=== PATIENT | female | born 1930 | race Caucasian/White ===

== ENCOUNTER 2016-06-05 19:37 | Emergency (ER) | payer MEDICARE, OTHER, MEDICAID ==
[2016-06-05] MEDS ORDERED: SODIUM CHLORIDE 0.9% (FLUSH) 10 ML SYG IV PRN (19:48)
[2016-06-05] MEDS ORDERED: ONDANSETRON INJ 4 MG/2 ML VIAL IV ONE (19:48)
[2016-06-05] MEDS ORDERED: MORPHINE SULFATE INJ 10 MG/ML VIAL IV ONE (19:49)
--- NOTE | 2016-06-05 19:54 | ED.PDOC ---
History of Present Illness - General Chief Complaint: Chest Pain/DE Stated Complaint: Pain on her left side Time Seen by Provider: 06/05/16 19:47 Source: patient, RN notes reviewed, Vital Signs reviewed, EMS Exam Limitations: no limitations - History of Present Illness Initial Comments: Patient complaining of left sided pain in her chest down to her hip. Denies any other symptoms. She was given SLNTG X2 at custodial without improvement so EMS was called. EMS gave SLNTG X 1 which dropped her BP to 100 so no more was given. She was also given ASA 324mg po. Patient still did not have any change in her pain. Timing/Duration: 1 hour Severity: severe Location: shoulder, abdomen, other - Left side of chest Activities at Onset: none Prior Chest Pain/Cardiac Workup: stress test - Reports she had a stress test yesterday Improving Factors: nothing Worsening Factors: nothing Nitro Today/Relief: 0.4 mg x 3, provided by EMS, provided at home, no relief Aspirin Treatment Today: 81 mg x 4, provided by EMS Associated Symptoms: chest pain Allergies/Adverse Reactions: Allergies Penicillins Allergy (Verified 12/22/15 10:23) Home Medications: Ambulatory Orders Aspirin [Aspirin EC] 325 mg PO BEDTIME 11/21/13 Clopidogrel Bisulfate [Plavix] 75 mg PO DAILY 11/21/13 DULoxetine HCL [Cymbalta] 30 mg PO ACBK 11/21/13 Dexlansoprazole [Dexilant] 60 mg PO ACBK 11/21/13 Donepezil Hydrochloride [Donepezil HCl] 10 mg PO BEDTIME 11/21/13 Galantamine [Razadyne] 4 mg PO BID 11/21/13 Loratadine [Claritin] 10 mg PO DAILY 11/21/13 Memantine [Namenda] 10 mg PO BID 11/21/13 Potassium Chloride [K-Tab] 20 meq PO DAILY 11/21/13 Pramipexole Dihydrochloride [Pramipexole Dihydrochlori] 1 mg PO BID 11/21/13 Diazepam 2 mg PO BEDTIME 10/15/14 Diazepam 1 mg PO DAILY 01/28/15 Ascorbic Acid [Vitamin C] 500 mg PO BEDTIME 11/29/15 Bisacodyl Suppository 10Mg [Dulcolax Suppository 10mg] 10 mg WI PRN PRN Calcium Carbonate-Cholecalcife [Calcium 600+D3 600-400 mg-Unit] 1 tab PO BEDTIME 11/29/15 Cyanocobalamin [Vitamin B12] 500 mcg PO BEDTIME 11/29/15 Magnesium Oxide 400 mg PO BID 11/29/15 Polyethylene Glycol 3350 [Miralax] 17 gm PO DAILY 11/29/15 Pravastatin Sodium 40 mg PO DAILY 11/29/15 Sucralfate Tab [Carafate Tab] 1 gm PO TID #90 tab 11/30/15 Clonidine HCl 0.1 mg PO DAILY PRN 12/22/15 Metoprolol Succinate [Toprol Xl] 50 mg PO QAM 12/22/15 Nitroglycerin 0.4 mg Tab [Nitrostat] 1 ea SL PRN PRN 12/22/15 Ondansetron HCl [Zofran] 4 mg PO Q6H PRN 12/22/15 Tylenol #3 1 each PO Q4H PRN 12/22/15 Ondansetron Tab [Zofran Tab] 4 mg PO Q4HR PRN #15 tab 12/23/15 Review of Systems - Review of Systems Constitutional: States: no symptoms reported. Denies: chills, diaphoresis, fever, malaise, weakness Respiratory: Denies: cough, orthopnea, short of breath, stridor, wheezing Cardiology: States: see HPI, chest pain Gastrointestinal/Abdominal: States: abdominal pain. Denies: constipation, diarrhea, nausea, vomiting Genitourinary: States: see HPI. Denies: dysuria Musculoskeletal: States: no symptoms reported Skin: States: no symptoms reported Neurological: States: no symptoms reported Endocrine: States: no symptoms reported Hematologic/Lymphatic: States: no symptoms reported Past Medical History (General) - Patient Medical History Hx Seizures: No Hx Stroke: Yes - TIA, cerebral infarction Hx Dementia: Yes Hx Asthma: No Hx of COPD: No Hx Cardiac Disorders: Yes Hx Congestive Heart Failure: No Hx Pacemaker: No Hx Hypertension: Yes Hx Thyroid Disease: No Hx Diabetes: No Hx Gastroesophageal Reflux: Yes Hx Renal Disease: No Hx Cancer: No Hx of HIV: No Hx Hepatitis C: No Hx MRSA: No - Vaccination History Hx Influenza Vaccination: Yes - 2013 Hx Pneumococcal Vaccination: Yes - 2012 - Social History Hx Tobacco Use: No Hx Chewing Tobacco Use: No Hx Alcohol Use: No Hx Substance Use: No Hx Substance Use Treatment: No Hx Depression: Yes Hx Physical Abuse: No Hx Emotional Abuse: No Hx Suspected Abuse: No - Female History Patient : No Family Medical History - Family History Mother Family History: Unknown Name: Susan Torre Living Status: Age at (years of age): 97 Cause of : heart attack Hx Family Asthma: Yes Hx Family Congestive Heart Failure: Yes Hx Family Hypertension: Yes Hx Family Stroke: No Hx Cardiac Disease: Yes Hx Family Diabetes: No Hx Family Cancer: Yes Hx Family;Other: of an infection Father Family History: Unknown Name: Tommie Living Status: Age at (years of age): 86 Cause of : heart attach Hx Family Asthma: No Hx Family Congestive Heart Failure: Yes Hx Family Hypertension: Yes Hx Family Stroke: Yes Hx Cardiac Disease: Yes Hx Family Diabetes: No Hx Family Cancer: No Hx Family;Other: of an infection Progress - Progress Progress: 06/05/16 21:33 Nurse spoke with daughter. Reports Sherif Brantley is not new, she has had this before. She did have a stress test on Monday. Typically when she has symptoms like this it is gastrointestinal. 06/05/16 21:34 Pain was relieved after the morphine was given. 06/05/16 22:16 Patient continues to be pain free. Abd X-ray shows no acute findings with a nonspecific bowel gas pattern per Radiologist. - EKG/XRAY/CT EKG: Atrial, Fibrillation, Changed from - 12/22/15 XRAY: chest - No acute changes per radiology Departure - Departure Clinical Impression: Abdominal pain, Atrial fibrillation Time of Disposition: 22:17 Disposition: Discharge to Asst Living Condition: Good Departure Forms: ED Discharge - Pt. Copy, Patient Portal Self Enrollment Instructions: DI for Abdominal Pain-Adult Diet: resume usual diet Activity: walking as tolerated Referrals: Lito Lopez III, MD [Primary Care Provider] - 1-2 Days Home Medications: Ambulatory Orders Aspirin [Aspirin EC] 325 mg PO BEDTIME 11/21/13 Clopidogrel Bisulfate [Plavix] 75 mg PO DAILY 11/21/13 DULoxetine HCL [Cymbalta] 30 mg PO ACBK 11/21/13 Dexlansoprazole [Dexilant] 60 mg PO ACBK 11/21/13 Donepezil Hydrochloride [Donepezil HCl] 10 mg PO BEDTIME 11/21/13 Galantamine [Razadyne] 4 mg PO BID 11/21/13 Loratadine [Claritin] 10 mg PO DAILY 11/21/13 Memantine [Namenda] 10 mg PO BID 11/21/13 Potassium Chloride [K-Tab] 20 meq PO DAILY 11/21/13 Pramipexole Dihydrochloride [Pramipexole Dihydrochlori] 1 mg PO BID 11/21/13 Diazepam 2 mg PO BEDTIME 10/15/14 Diazepam 1 mg PO DAILY 01/28/15 Ascorbic Acid [Vitamin C] 500 mg PO BEDTIME 11/29/15 Bisacodyl Suppository 10Mg [Dulcolax Suppository 10mg] 10 mg WI PRN PRN Calcium Carbonate-Cholecalcife [Calcium 600+D3 600-400 mg-Unit] 1 tab PO BEDTIME 11/29/15 Cyanocobalamin [Vitamin B12] 500 mcg PO BEDTIME 11/29/15 Magnesium Oxide 400 mg PO BID 11/29/15 Polyethylene Glycol 3350 [Miralax] 17 gm PO DAILY 11/29/15 Pravastatin Sodium 40 mg PO DAILY 11/29/15 Sucralfate Tab [Carafate Tab] 1 gm PO TID #90 tab 11/30/15 Clonidine HCl 0.1 mg PO DAILY PRN 12/22/15 Metoprolol Succinate [Toprol Xl] 50 mg PO QAM 12/22/15 Nitroglycerin 0.4 mg Tab [Nitrostat] 1 ea SL PRN PRN 12/22/15 Ondansetron HCl [Zofran] 4 mg PO Q6H PRN 12/22/15 Tylenol #3 1 each PO Q4H PRN 12/22/15 Ondansetron Tab [Zofran Tab] 4 mg PO Q4HR PRN #15 tab 12/23/15
--- NOTE | 2016-06-05 20:04 | RAD ---
EXAM DESCRIPTION: XR CHEST 1 VIEW CLINICAL HISTORY: 86 y/o [place] pain COMPARISON: 12/22/2015. FINDINGS: The cardiomediastinal silhouette appears unremarkable. Atherosclerotic calcification and tortuosity in the thoracic aorta. No consolidating infiltrates or pleural effusions. No pneumothorax. No significant changes are visualized compared to the prior study. IMPRESSION: No acute abnormality is identified. Electronically signed by: Rene Mack MD 06/05/2016 20:02
[2016-06-05 20:34] VITALS: TEMP 98
--- NOTE | 2016-06-05 22:06 | RAD ---
EXAM DESCRIPTION: XR ABDOMEN 2 VIEWS SUPINE ERECT CLINICAL HISTORY: 86 y/o [place] sided abd pain COMPARISON: None. TECHNIQUE: Two views of the abdomen. FINDINGS: Tortuosity in the thoracic aorta. The lungs appear hyperexpanded. Small amount of atelectasis/ scarring at the left lung base. No free air is visualized. Mild distention within some loops of the colon. No definite bowel obstruction. Surgical clips visualized in the right upper abdomen. No significant abnormal calcific densities are identified. Curvature in the lumbar spine convex right with degenerative changes. IMPRESSION: No acute plain film abnormality is identified. Nonspecific bowel gas pattern. Electronically signed by: Rene Mack MD 06/05/2016 22:04
[2016-06-05 22:27] VITALS: O2SAT 97
[2016-06-05 22:29] VITALS: BP 105/76
== END 2016-06-05 23:33 ==
LOC: ER 19:37
DX: I48.91 Unspecified atrial fibrillation (principal); R10.9 Unspecified abdominal pain; Z86.73 Personal history of transient ischemic attack (TIA), and cerebral infarction without residual deficits; F03.90 Unspecified dementia, unspecified severity, without behavioral disturbance, psychotic disturbance, mood disturbance, and anxiety; I10 Essential (primary) hypertension; K21.9 Gastro-esophageal reflux disease without esophagitis; F32.9 Major depressive disorder, single episode, unspecified; Z79.82 Long term (current) use of aspirin; Z79.02 Long term (current) use of antithrombotics/antiplatelets; Z79.899 Other long term (current) drug therapy; Z88.0 Allergy status to penicillin; Z82.49 Family history of ischemic heart disease and other diseases of the circulatory system
CPT/HCPCS: 71010; 74010; 80048; 82550; 82553; 83880; 84484; 85025; 85379; 85610; 85730; 93005; J2270; J2405

== ENCOUNTER 2016-08-23 22:51 | Emergency (ER) | payer MEDICARE, OTHER ==
[2016-08-23] MEDS ORDERED: SODIUM CHLORIDE 0.9% 500ML 500 ML IVS ONE (23:17)
--- NOTE | 2016-08-23 23:19 | CT ---
PROCEDURE: Head HISTORY: confusion Indication: Same as above Comparison: 01/20/2015 Technique: CT of the head was done without intravenous contrast was done in the orthogonal planes. This exam was performed according to our departmental dose-optimization program, which includes automated exposure control, adjustment of the mA and/or KV according to the patient's size and/or use of iterative reconstruction technique. FINDINGS: There is no intracranial hemorrhage, midline shift mass effect or acute focal infarct. There is prominence of the sylvian fissures and the cortical sulci reflecting age related volume loss. There is periventricular and deep white matter low attenuation, most likely related to small vessel white matter ischemic disease. Intracranial vascular calcifications are seen. If clinical concern exists regarding an acute ischemic/vascular pathology being responsible for patient's symptomatology, an MRI of the brain is more sensitive than the current study, in ruling out such a possibility. There is good medina/white matter differentiation. The ventricular system is normal. The mastoid air cells are unremarkable . The paranasal sinuses show underlying changes of chronic sinusitis . There is no visualization of acute fractures involving the calvarium or the skull base. IMPRESSION: There is no acute intracranial abnormality. Age related and chronic involutional changes are seen. Electronically signed by: Rogelio Villalpando MD 08/23/2016 11:19 PM CDT
--- NOTE | 2016-08-23 23:20 | ED.PDOC ---
History of Present Illness - General Chief Complaint: Neuro Symptoms/Deficits Stated Complaint: possible stroke Time Seen by Provider: 08/23/16 23:10 Source: family Additional Information: PT WAS NOTED BY NH TO BE ACUTELY CONFUSED. NO FOCAL DEFICITS WERE REPORTED BUT PT WAS SENT FOR EVALUATION FOR POSSIBLE STROKE. DAUGHTER HERE. ONSET 9PM. DAUGHTER STATES SHE HAS HAD TIA IN THE PAST BUT THAT HAS BEEN ALWAYS ASSOCIATED WITH FACIAL DROOP. ALSO PT HAS BEEN LIKE THIS BEFORE AND IT FREQUENTLY IS A UTI. - History of Present Illness Timing/Duration: unsure Severity: mild Improving Factors: nothing Worsening Factors: nothing Associated Symptoms: other - NOTHING Allergies/Adverse Reactions: Allergies Penicillins Allergy (Verified 08/23/16 23:21) Home Medications: Ambulatory Orders Aspirin [Aspirin EC] 325 mg PO BEDTIME 11/21/13 Clopidogrel Bisulfate [Plavix] 75 mg PO DAILY 11/21/13 DULoxetine HCL [Cymbalta] 20 mg PO ACBK 11/21/13 Dexlansoprazole [Dexilant] 60 mg PO ACBK 11/21/13 Donepezil Hydrochloride [Donepezil HCl] 10 mg PO BEDTIME 11/21/13 Galantamine [Razadyne] 4 mg PO BID 11/21/13 Loratadine [Claritin] 10 mg PO DAILY 11/21/13 Memantine [Namenda] 10 mg PO BID 11/21/13 Potassium Chloride [K-Tab] 20 meq PO DAILY 11/21/13 Pramipexole Dihydrochloride [Pramipexole Dihydrochlori] 1 mg PO BID 11/21/13 Diazepam 2 mg PO BEDTIME 10/15/14 Diazepam 1 mg PO DAILY 01/28/15 Ascorbic Acid [Vitamin C] 500 mg PO BEDTIME 11/29/15 Bisacodyl Suppository 10Mg [Dulcolax Suppository 10mg] 10 mg AR PRN PRN Calcium Carbonate-Cholecalcife [Calcium 600+D3 600-400 mg-Unit] 1 tab PO BEDTIME 11/29/15 Cyanocobalamin [Vitamin B12] 500 mcg PO BEDTIME 11/29/15 Magnesium Oxide 400 mg PO BID 11/29/15 Polyethylene Glycol 3350 [Miralax] 17 gm PO DAILY 11/29/15 Pravastatin Sodium 40 mg PO DAILY 11/29/15 Sucralfate Tab [Carafate Tab] 1 gm PO TID #90 tab 11/30/15 Clonidine HCl 0.1 mg PO DAILY PRN 12/22/15 Metoprolol Succinate [Toprol Xl] 100 mg PO QAM 12/22/15 Nitroglycerin 0.4 mg Tab [Nitrostat] 1 ea SL PRN PRN 12/22/15 Ondansetron HCl [Zofran] 4 mg PO Q6H PRN 12/22/15 Tylenol #3 1 each PO Q4H PRN 12/22/15 Ondansetron Tab [Zofran Tab] 4 mg PO Q4HR PRN #15 tab 12/23/15 Dicyclomine HCl 10 mg PO PRN 08/23/16 Escitalopram Oxalate [Lexapro] 5 mg PO DAILY 08/23/16 Review of Systems - Review of Systems Unable to Obtain Due To: dementia - FAMILY REPORTS PT HAS BEEN IN HER USUAL STATE OF HEALTH Past Medical History (General) - Patient Medical History Hx Seizures: No Hx Stroke: Yes - TIA, cerebral infarction Hx Dementia: Yes Hx Asthma: No Hx of COPD: No Hx Cardiac Disorders: Yes Hx Congestive Heart Failure: No Hx Pacemaker: No Hx Hypertension: Yes Hx Thyroid Disease: No Hx Diabetes: No Hx Gastroesophageal Reflux: Yes Hx Renal Disease: No Hx Cancer: No Hx of HIV: No Hx Hepatitis C: No Hx MRSA: No - Vaccination History Hx Influenza Vaccination: Yes - 2013 Hx Pneumococcal Vaccination: Yes - 2012 - Social History Hx Tobacco Use: No Hx Chewing Tobacco Use: No Hx Alcohol Use: No Hx Substance Use: No Hx Substance Use Treatment: No Hx Depression: Yes Hx Physical Abuse: No Hx Emotional Abuse: No Hx Suspected Abuse: No - Female History Patient : No Family Medical History - Family History Mother Family History: Unknown Name: Susan Torre Living Status: Age at (years of age): 97 Cause of : heart attack Hx Family Asthma: Yes Hx Family Congestive Heart Failure: Yes Hx Family Hypertension: Yes Hx Family Stroke: No Hx Cardiac Disease: Yes Hx Family Diabetes: No Hx Family Cancer: Yes Hx Family;Other: of an infection Father Family History: Unknown Name: Tommie Living Status: Age at (years of age): 86 Cause of : heart attach Hx Family Asthma: No Hx Family Congestive Heart Failure: Yes Hx Family Hypertension: Yes Hx Family Stroke: Yes Hx Cardiac Disease: Yes Hx Family Diabetes: No Hx Family Cancer: No Hx Family;Other: of an infection Physical Exam - Physical Exam General Appearance: Alert, Frail, No apparent distress Eye Exam: bilateral normal Ears, Nose, Throat: hearing grossly normal Neck: non-tender, full range of motion, supple, normal inspection Respiratory: lungs clear, normal breath sounds Cardiovascular/Chest: regular rate, rhythm, no edema, other - 1/6 MILD AYO Gastrointestinal/Abdominal: normal bowel sounds, non tender, soft, no organomegaly Back Exam: normal inspection Extremity: normal range of motion, normal inspection Neurologic: no motor/sensory deficits, alert, other - PT WITH NON FOCAL EXAM OTHER THAN CONFUSION Skin Exam: normal color, warm/dry Lymphatic: no adenopathy Progress - Progress Progress: 08/24/16 00:51 VSS, SLEEPING, NAD, Departure - Departure Clinical Impression: Delirium due to known physiological condition Dementia Qualifiers: Dementia type: unspecified type Time of Disposition: 00:51 Disposition: Discharge to SNF Condition: Fair Departure Forms: ED Discharge - Pt. Copy, Patient Portal Self Enrollment Home Medications: Ambulatory Orders Aspirin [Aspirin EC] 325 mg PO BEDTIME 11/21/13 Clopidogrel Bisulfate [Plavix] 75 mg PO DAILY 11/21/13 DULoxetine HCL [Cymbalta] 20 mg PO ACBK 11/21/13 Dexlansoprazole [Dexilant] 60 mg PO ACBK 11/21/13 Donepezil Hydrochloride [Donepezil HCl] 10 mg PO BEDTIME 11/21/13 Galantamine [Razadyne] 4 mg PO BID 11/21/13 Loratadine [Claritin] 10 mg PO DAILY 11/21/13 Memantine [Namenda] 10 mg PO BID 11/21/13 Potassium Chloride [K-Tab] 20 meq PO DAILY 11/21/13 Pramipexole Dihydrochloride [Pramipexole Dihydrochlori] 1 mg PO BID 11/21/13 Diazepam 2 mg PO BEDTIME 10/15/14 Diazepam 1 mg PO DAILY 01/28/15 Ascorbic Acid [Vitamin C] 500 mg PO BEDTIME 11/29/15 Bisacodyl Suppository 10Mg [Dulcolax Suppository 10mg] 10 mg AR PRN PRN Calcium Carbonate-Cholecalcife [Calcium 600+D3 600-400 mg-Unit] 1 tab PO BEDTIME 11/29/15 Cyanocobalamin [Vitamin B12] 500 mcg PO BEDTIME 11/29/15 Magnesium Oxide 400 mg PO BID 11/29/15 Polyethylene Glycol 3350 [Miralax] 17 gm PO DAILY 11/29/15 Pravastatin Sodium 40 mg PO DAILY 11/29/15 Sucralfate Tab [Carafate Tab] 1 gm PO TID #90 tab 11/30/15 Clonidine HCl 0.1 mg PO DAILY PRN 12/22/15 Metoprolol Succinate [Toprol Xl] 100 mg PO QAM 12/22/15 Nitroglycerin 0.4 mg Tab [Nitrostat] 1 ea SL PRN PRN 12/22/15 Ondansetron HCl [Zofran] 4 mg PO Q6H PRN 12/22/15 Tylenol #3 1 each PO Q4H PRN 12/22/15 Ondansetron Tab [Zofran Tab] 4 mg PO Q4HR PRN #15 tab 12/23/15 Dicyclomine HCl 10 mg PO PRN 08/23/16 Escitalopram Oxalate [Lexapro] 5 mg PO DAILY 08/23/16
--- NOTE | 2016-08-23 23:42 | RAD ---
PROCEDURE: XR CHEST 1 VIEW HISTORY: AMS COMPARISON: 06/05/2016 TECHNIQUE: Single projection of the chest was done. FINDINGS: The lung young are well inflated . There are no discrete airspace infiltrates, pneumothoraces or pleural effusions. The pulmonary vascularity is normal. The cardiomediastinal silhouette is unremarkable for patient's age and sex. IMPRESSION: There is no acute pleural-parenchymal process seen in the imaged lung young. Location of Interpretation: Teleradiology Electronically signed by: Rogelio Villalpando MD 08/23/2016 11:42 PM CDT
[2016-08-24 01:05] VITALS: TEMP 97.8; O2SAT 94
[2016-08-24 01:41] VITALS: BP 139/76
== END 2016-08-24 01:40 ==
LOC: ER 22:51
DX: F05 Delirium due to known physiological condition (principal); I10 Essential (primary) hypertension; Z88.0 Allergy status to penicillin; Z79.82 Long term (current) use of aspirin; Z79.899 Other long term (current) drug therapy; Z86.73 Personal history of transient ischemic attack (TIA), and cerebral infarction without residual deficits

== ENCOUNTER → 2016-10-15 | Outpatient (CLI) | payer MEDICARE, OTHER | END | disposition home or self-care (01) | LOC: GOCC 10:23 | PROVIDERS: ATTEND Internal Medicine | DX: R30.0 Dysuria (principal) ==

== ENCOUNTER 2017-06-26 02:54 | Emergency (ER) | payer MEDICARE, OTHER ==
--- NOTE | 2017-06-26 03:13 | ED.PDOC ---
History of Present Illness - General Chief Complaint: Trauma Stated Complaint: hip/back pain s/p fall Time Seen by Provider: 06/26/17 03:04 Source: EMS notes reviewed Exam Limitations: no limitations - History of Present Illness Initial Comments: Aster Calabrese 87 y/o female resident at [facility] brought by EMS after she was found on the floor by one of the nurses presumed to have rolled down her bed then fell to the floor.The nurse were asking her question and took longer to answer them back but on EMS arrival stated that she was hurting all over.No loc reported on her arrival here at ER she was awake and stated she was hurting on her back and hips. She has history of dementia as per her records form MD. Occurred: just prior to arrival Severity: moderate Injuries/Pain Location: no injury Reason for Fall: other - see hpi Loss of Consciousness: no loss of consciousness Improving Factors: nothing Worsening Factors: nothing Associated Symptoms (Fall): other - pain hips Allergies/Adverse Reactions: Allergies Penicillins Allergy (Verified 06/26/17 03:10) Home Medications: Ambulatory Orders Aspirin [Aspirin EC] 325 mg PO BEDTIME 11/21/13 Clopidogrel Bisulfate [Plavix] 75 mg PO DAILY 11/21/13 DULoxetine HCL [Cymbalta] 20 mg PO ACBK 11/21/13 Dexlansoprazole [Dexilant] 60 mg PO ACBK 11/21/13 Donepezil Hydrochloride [Donepezil HCl] 10 mg PO BEDTIME 11/21/13 Galantamine [Razadyne] 4 mg PO BID 11/21/13 Memantine [Namenda] 10 mg PO BID 11/21/13 Potassium Chloride [K-Tab] 20 meq PO DAILY 11/21/13 Pramipexole Dihydrochloride [Pramipexole Dihydrochlori] 1 mg PO BID 11/21/13 Diazepam 2 mg PO BEDTIME 10/15/14 Diazepam 1 mg PO DAILY 01/28/15 Ascorbic Acid [Vitamin C] 500 mg PO BEDTIME 11/29/15 Bisacodyl Suppository 10Mg [Dulcolax Suppository 10mg] 10 mg PA PRN PRN Calcium Carbonate-Cholecalcife [Calcium 600+D3 600-400 mg-Unit] 1 tab PO BEDTIME 11/29/15 Cyanocobalamin [Vitamin B12] 500 mcg PO BEDTIME 11/29/15 Magnesium Oxide 400 mg PO BID 11/29/15 Polyethylene Glycol 3350 [Miralax] 17 gm PO DAILY 11/29/15 Pravastatin Sodium 40 mg PO DAILY 11/29/15 Sucralfate Tab [Carafate Tab] 1 gm PO TID #90 tab 11/30/15 Clonidine HCl 0.1 mg PO DAILY PRN 12/22/15 Metoprolol Succinate [Toprol Xl] 100 mg PO QAM 12/22/15 Nitroglycerin 0.4 mg Tab [Nitrostat] 1 ea SL PRN PRN 12/22/15 Ondansetron HCl [Zofran] 4 mg PO Q6H PRN 12/22/15 Tylenol #3 1 each PO Q4H PRN 12/22/15 Ondansetron Tab [Zofran Tab] 4 mg PO Q4HR PRN #15 tab 12/23/15 Dicyclomine HCl 10 mg PO PRN 08/23/16 Escitalopram Oxalate [Lexapro] 5 mg PO DAILY 08/23/16 Cetirizine HCl 10 mg PO 06/26/17 Lactulose [Constulose] 10 gm PO 06/26/17 Nystatin Powder [Mycostatin] 15 gm TOP 06/26/17 levoFLOXacin [Levaquin] 500 mg PO DAILY #7 tab 06/26/17 Review of Systems - Review of Systems Constitutional: States: no symptoms reported EENTM: States: no symptoms reported Respiratory: States: no symptoms reported Cardiology: States: no symptoms reported Gastrointestinal/Abdominal: States: no symptoms reported Genitourinary: States: no symptoms reported Musculoskeletal: States: see HPI Neurological: States: no symptoms reported Past Medical History (General) - Patient Medical History Hx Seizures: No Hx Stroke: Yes - TIA, cerebral infarction Hx Dementia: Yes Hx Asthma: No Hx of COPD: No Hx Cardiac Disorders: Yes Hx Congestive Heart Failure: No Hx Pacemaker: No Hx Hypertension: Yes Hx Thyroid Disease: No Hx Diabetes: No Hx Gastroesophageal Reflux: Yes Hx Renal Disease: No Hx Cancer: No Hx of HIV: No Hx Hepatitis C: No Hx MRSA: No Surgical History: appendectomy, tonsillectomy, other - hysterectomy,left knee - Vaccination History Hx Influenza Vaccination: Yes - 2013 Hx Pneumococcal Vaccination: Yes - 2012 - Social History Hx Tobacco Use: No Hx Chewing Tobacco Use: No Hx Alcohol Use: No Hx Substance Use: No Hx Substance Use Treatment: No Hx Depression: Yes Hx Physical Abuse: No Hx Emotional Abuse: No Hx Suspected Abuse: No - Activities of Daily Living Penitentiary/Assisted Living (if applicable):: [facility] Grooming Ability: Standby Assistance Eating (Feeding) Ability: Standby Assistance Toileting Ability: Moderate Assistance Additional ED Patient Information: wheelchair bound - Female History Patient : No Physical Exam - Physical Exam General Appearance: Alert, Comfortable, No apparent distress Head Injury: other - erythema scalp back of head Eye Exam: bilateral normal ENT Exam: hearing grossly normal, no evidence of ENT injury, no dental injury Peripheral Pulses: radial,right: 2+, radial,left: 2+ Cardiovascular/Respiratory: no M/R/G, no respiratory distress, irregularly irregular, other - decrease breath sounds lung base Gastrointestinal/Abdominal: non tender, soft, no organomegaly Back Exam: normal inspection, no CVA tenderness, no vertebral tenderness Extremity Exam: non-tender, pelvis stable, pain with movement - pelvis Neurologic: alert, oriented x 3 Skin Exam: normal color, warm/dry - [place] Coma Score Best Eye Response (Stoney): (4) open spontaneously Best Verbal Response ([place]): (5) oriented Best Motor Response ([place]): (6) obeys commands [place] Total: 15 Progress - Progress Progress: 06/26/17 03:38 Last Vital Signs Temp 101.2 F H 06/26/17 03:00 Pulse 104 H 06/26/17 03:00 Resp 16 06/26/17 03:00 BP 129/87 06/26/17 03:00 Pulse Ox 91 L 06/26/17 03:00 06/26/17 05:04 Last Vital Signs Temp 100.4 F H 06/26/17 05:03 Pulse 115 H 06/26/17 04:15 Resp 16 06/26/17 04:00 BP 102/71 06/26/17 04:15 Pulse Ox 93 L 06/26/17 05:03 - Results/Orders Results/Orders: Laboratory Tests 06/26/17 06/26/17 06/26/17 03:30 03:30 03:30 WBC 8.8 RBC 5.02 Hgb 14.7 Hct 44.3 MCV 88.4 MCH 29.4 MCHC 33.3 RDW 14.4 Plt Count 203 MPV 9.0 Absolute Neuts (auto) 7.60 H Absolute Lymphs (auto) 0.80 L Absolute Monos (auto) 0.40 Absolute Eos (auto) 0.00 Absolute Basos (auto) 0.00 Neutrophils % 85.9 H Lymphocytes % 9.5 L Monocytes % 4.4 Eosinophils % 0.0 L Basophils % 0.2 Sodium 142 Potassium 3.8 Chloride 104 Carbon Dioxide 28 Anion Gap 13.8 BUN 30 H Creatinine 0.76 BUN/Creatinine Ratio 39.5 H Random Glucose 154 H Serum Osmolality 292.4 Lactic Acid 1.5 Calcium 9.3 Total Bilirubin 0.7 AST 20 ALT 15 Alkaline Phosphatase 69 Serum Total Protein 8.3 H Albumin 3.8 Globulin 4.5 H Albumin/Globulin Ratio 0.8 L Urine Color Urine Appearance Urine pH Ur Specific [place] Urine Protein Urine Glucose (UA) Urine Ketones Urine Blood Urine Nitrite Urine Bilirubin Urine Urobilinogen Ur Leukocyte Esterase Urine RBC Urine WBC Ur Epithelial Cells Amorphous Sediment Urine Bacteria Urine Mucus 06/26/17 03:35 WBC RBC Hgb Hct MCV MCH MCHC RDW Plt Count MPV Absolute Neuts (auto) Absolute Lymphs (auto) Absolute Monos (auto) Absolute Eos (auto) Absolute Basos (auto) Neutrophils % Lymphocytes % Monocytes % Eosinophils % Basophils % Sodium Potassium Chloride Carbon Dioxide Anion Gap BUN Creatinine BUN/Creatinine Ratio Random Glucose Serum Osmolality Lactic Acid Calcium Total Bilirubin AST ALT Alkaline Phosphatase Serum Total Protein Albumin Globulin Albumin/Globulin Ratio Urine Color Yellow Urine Appearance Cloudy Urine pH 5.5 Ur Specific [place] 1.025 Urine Protein >=300 H Urine Glucose (UA) Negative Urine Ketones 15 H Urine Blood Moderate H Urine Nitrite Positive H Urine Bilirubin Negative Urine Urobilinogen 0.2 Ur Leukocyte Esterase Trace H Urine RBC 5-10 H Urine WBC 30-40 H Ur Epithelial Cells 0-1 Amorphous Sediment 2+ Urine Bacteria 3+ H Urine Mucus Trace FLU SWAB NEGATIVE - EKG/XRAY/CT XRAY: pelvis - hazy opacities left lower lung base;Hip/Pevis -no fractures noted Departure - Departure Clinical Impression: Pain in pelvis Fall at shelter Qualifiers: Encounter type: initial encounter Qualified Code(s): W19.XXXA - Unspecified fall, initial encounter; Y92.129 - Unspecified place in shelter as the place of occurrence of the external cause Urinary tract infection Qualifiers: Urinary tract infection type: site unspecified Hematuria presence: with hematuria Qualified Code(s): N39.0 - Urinary tract infection, site not specified ; R31.9 - Hematuria, unspecified Time of Disposition: 05:16 Disposition: Discharge to SNF Condition: Fair Departure Forms: ED Discharge - Pt. Copy, Patient Portal Self Enrollment Referrals: Lito Lopez III, MD [Primary Care Provider] - 1-2 Weeks Prescriptions: levoFLOXacin [Levaquin] 500 mg PO DAILY #7 tab Home Medications: Ambulatory Orders Aspirin [Aspirin EC] 325 mg PO BEDTIME 11/21/13 Clopidogrel Bisulfate [Plavix] 75 mg PO DAILY 11/21/13 DULoxetine HCL [Cymbalta] 20 mg PO ACBK 11/21/13 Dexlansoprazole [Dexilant] 60 mg PO ACBK 11/21/13 Donepezil Hydrochloride [Donepezil HCl] 10 mg PO BEDTIME 11/21/13 Galantamine [Razadyne] 4 mg PO BID 11/21/13 Memantine [Namenda] 10 mg PO BID 11/21/13 Potassium Chloride [K-Tab] 20 meq PO DAILY 11/21/13 Pramipexole Dihydrochloride [Pramipexole Dihydrochlori] 1 mg PO BID 11/21/13 Diazepam 2 mg PO BEDTIME 10/15/14 Diazepam 1 mg PO DAILY 01/28/15 Ascorbic Acid [Vitamin C] 500 mg PO BEDTIME 11/29/15 Bisacodyl Suppository 10Mg [Dulcolax Suppository 10mg] 10 mg PA PRN PRN Calcium Carbonate-Cholecalcife [Calcium 600+D3 600-400 mg-Unit] 1 tab PO BEDTIME 11/29/15 Cyanocobalamin [Vitamin B12] 500 mcg PO BEDTIME 11/29/15 Magnesium Oxide 400 mg PO BID 11/29/15 Polyethylene Glycol 3350 [Miralax] 17 gm PO DAILY 11/29/15 Pravastatin Sodium 40 mg PO DAILY 11/29/15 Sucralfate Tab [Carafate Tab] 1 gm PO TID #90 tab 11/30/15 Clonidine HCl 0.1 mg PO DAILY PRN 12/22/15 Metoprolol Succinate [Toprol Xl] 100 mg PO QAM 12/22/15 Nitroglycerin 0.4 mg Tab [Nitrostat] 1 ea SL PRN PRN 12/22/15 Ondansetron HCl [Zofran] 4 mg PO Q6H PRN 12/22/15 Tylenol #3 1 each PO Q4H PRN 12/22/15 Ondansetron Tab [Zofran Tab] 4 mg PO Q4HR PRN #15 tab 12/23/15 Dicyclomine HCl 10 mg PO PRN 08/23/16 Escitalopram Oxalate [Lexapro] 5 mg PO DAILY 08/23/16 Cetirizine HCl 10 mg PO 06/26/17 Lactulose [Constulose] 10 gm PO 06/26/17 Nystatin Powder [Mycostatin] 15 gm TOP 06/26/17 levoFLOXacin [Levaquin] 500 mg PO DAILY #7 tab 06/26/17 Additional Instructions: Follow up with primary MD 06/28/2017
--- NOTE | 2017-06-26 04:09 | RAD ---
Examination: XR CHEST 1 VIEW dated 06/26/2017 3:13 AM CARDIOVASCULAR LAB DIRECTOR History: fever Comparison: 08/23/2016 Technique: Frontal view of the chest Findings: Hazy opacities within the left lung base. No pneumothorax or pleural effusion. Aortic atherosclerosis. Normal cardiac silhouette. Impression: Hazy left lung base opacities may be seen with atelectasis or pneumonia. Electronically signed by: Wilmer Marrero MD 06/26/2017 4:08 AM CARDIOVASCULAR LAB DIRECTOR
--- NOTE | 2017-06-26 04:10 | RAD ---
Examination: XR PELVIS 3 OR MORE VIEWS dated 06/26/2017 3:13 AM WINDOWS DEPLOYMENT TECHNICIAN History: fever Comparison: None Technique: Frontal view of the pelvis, frontal and lateral view of both hips. FINDINGS AND IMPRESSION: [id number] degenerative changes of both hips without acute fracture or dislocation. Intact pelvic ring. Symmetric SI joints. Electronically signed by: Wilmer Marrero MD 06/26/2017 4:09 AM WINDOWS DEPLOYMENT TECHNICIAN
[2017-06-26] MEDS ORDERED: levoFLOXacin 500MG IV 500 MG in PREMIX BAG 1 BAG IVPB ONE (04:42)
[2017-06-26] MEDS ORDERED: SODIUM CHLORIDE 0.9% 500ML 500 ML IVS ONE (04:45)
[2017-06-26] MEDS ORDERED: levoFLOXacin 500MG IV 100 ML IVPB ONE (04:47)
[2017-06-26 05:03] VITALS: TEMP 100.4; O2SAT 93
[2017-06-26 06:14] VITALS: BP 115/68
== END 2017-06-26 06:30 ==
LOC: ER 02:54
DX: N39.0 Urinary tract infection, site not specified (principal); M25.552 Pain in left hip; M25.551 Pain in right hip; F03.90 Unspecified dementia, unspecified severity, without behavioral disturbance, psychotic disturbance, mood disturbance, and anxiety; I10 Essential (primary) hypertension; K21.9 Gastro-esophageal reflux disease without esophagitis; Z86.73 Personal history of transient ischemic attack (TIA), and cerebral infarction without residual deficits; W06.XXXA Fall from bed, initial encounter; Y92.122 Bedroom in nursing home as the place of occurrence of the external cause
CPT/HCPCS: 36415; 71045; 72190; 80053; 81001; 83605; 85025; 87040; 87086; 87502; J1956; J7040

== ENCOUNTER 2017-12-25 09:23 | Emergency (ER) | payer MEDICARE, OTHER, MEDICAID ==
--- NOTE | 2017-12-25 09:38 | ED.PDOC ---
History of Present Illness - General Chief Complaint: Neuro Symptoms/Deficits Stated Complaint: not responding correctly Time Seen by Provider: 12/25/17 09:28 Source: RN notes reviewed, EMS notes reviewed Additional Information: 87 YEAR OLD BROUGHT HERE FROM A LOCAL NURSING FACILITY FOR EVALUATION OF ALTERED MENTAL STATUS ONSET TODAY AM NO TRAUMA NO FEVER CHILLS NO VOMITING DIARRHEA SHE HAS KNOWN HISTORY OF HTN CVA ATRIAL FIBRILLATION - History of Present Illness Timing/Duration: 1-3 hours Improving Factors: nothing Worsening Factors: nothing Associated Symptoms: denies symptoms Allergies/Adverse Reactions: Allergies Penicillins Allergy (Verified 06/26/17 03:10) Home Medications: Ambulatory Orders Aspirin [Aspirin EC] 325 mg PO BEDTIME 11/21/13 Clopidogrel Bisulfate [Plavix] 75 mg PO DAILY 11/21/13 DULoxetine HCL [Cymbalta] 20 mg PO ACBK 11/21/13 Dexlansoprazole [Dexilant] 60 mg PO ACBK 11/21/13 Donepezil Hydrochloride [Donepezil HCl] 10 mg PO BEDTIME 11/21/13 Galantamine [Razadyne] 4 mg PO BID 11/21/13 Memantine [Namenda] 10 mg PO BID 11/21/13 Potassium Chloride [K-Tab] 20 meq PO DAILY 11/21/13 Pramipexole Dihydrochloride [Pramipexole Dihydrochlori] 1 mg PO BID 11/21/13 Diazepam 2 mg PO BEDTIME 10/15/14 Diazepam 1 mg PO DAILY 01/28/15 Ascorbic Acid [Vitamin C] 500 mg PO BEDTIME 11/29/15 Bisacodyl Suppository 10Mg [Dulcolax Suppository 10mg] 10 mg MI PRN PRN Calcium Carbonate-Cholecalcife [Calcium 600+D3 600-400 mg-Unit] 1 tab PO BEDTIME 11/29/15 Cyanocobalamin [Vitamin B12] 500 mcg PO BEDTIME 11/29/15 Magnesium Oxide 400 mg PO BID 11/29/15 Polyethylene Glycol 3350 [Miralax] 17 gm PO DAILY 11/29/15 Pravastatin Sodium 40 mg PO DAILY 11/29/15 Sucralfate Tab [Carafate Tab] 1 gm PO TID #90 tab 11/30/15 Clonidine HCl 0.1 mg PO DAILY PRN 12/22/15 Metoprolol Succinate [Toprol Xl] 100 mg PO QAM 12/22/15 Nitroglycerin 0.4 mg Tab [Nitrostat] 1 ea SL PRN PRN 12/22/15 Ondansetron HCl [Zofran] 4 mg PO Q6H PRN 12/22/15 Tylenol #3 1 each PO Q4H PRN 12/22/15 Ondansetron Tab [Zofran Tab] 4 mg PO Q4HR PRN #15 tab 12/23/15 Dicyclomine HCl 10 mg PO PRN 08/23/16 Escitalopram Oxalate [Lexapro] 5 mg PO DAILY 08/23/16 Cetirizine HCl 10 mg PO 06/26/17 Lactulose [Constulose] 10 gm PO 06/26/17 Nystatin Powder [Mycostatin] 15 gm TOP 06/26/17 levoFLOXacin [Levaquin] 500 mg PO DAILY #7 tab 06/26/17 Review of Systems - Review of Systems Unable to Obtain Due To: dementia Past Medical History (General) - Patient Medical History Hx Seizures: No Hx Stroke: Yes - TIA, cerebral infarction Hx Dementia: Yes Hx Asthma: No Hx of COPD: No Hx Cardiac Disorders: Yes Hx Congestive Heart Failure: No Hx Pacemaker: No Hx Hypertension: Yes Hx Thyroid Disease: No Hx Diabetes: No Hx Gastroesophageal Reflux: Yes Hx Renal Disease: No Hx Cancer: No Hx of HIV: No Hx Hepatitis C: No Hx MRSA: No - Vaccination History Hx Influenza Vaccination: Yes - 2013 Hx Pneumococcal Vaccination: Yes - 2012 - Social History Hx Tobacco Use: No Hx Chewing Tobacco Use: No Hx Alcohol Use: No Hx Substance Use: No Hx Substance Use Treatment: No Hx Depression: Yes Hx Physical Abuse: No Hx Emotional Abuse: No Hx Suspected Abuse: No - Female History Patient : No Family Medical History - Family History Mother Family History: Unknown Name: Susan Torre Living Status: Age at (years of age): 97 Cause of : heart attack Hx Family Asthma: Yes Hx Family Congestive Heart Failure: Yes Hx Family Hypertension: Yes Hx Family Stroke: No Hx Cardiac Disease: Yes Hx Family Diabetes: No Hx Family Cancer: Yes Hx Family;Other: of an infection Father Family History: Unknown Name: Tommie Living Status: Age at (years of age): 86 Cause of : heart attach Hx Family Asthma: No Hx Family Congestive Heart Failure: Yes Hx Family Hypertension: Yes Hx Family Stroke: Yes Hx Cardiac Disease: Yes Hx Family Diabetes: No Hx Family Cancer: No Hx Family;Other: of an infection Physical Exam - Physical Exam General Appearance: Lethargic Eye Exam: bilateral normal Ears, Nose, Throat: hearing grossly normal, normal ENT inspection, normal pharynx Neck: non-tender, full range of motion, supple Respiratory: chest non-tender, lungs clear, normal breath sounds, no respiratory distress, no accessory muscle use Cardiovascular/Chest: normal peripheral pulses, regular rate, rhythm, no edema, no gallop Gastrointestinal/Abdominal: normal bowel sounds, non tender, soft Back Exam: normal inspection, no CVA tenderness, no vertebral tenderness Neurologic: food and beverage coordinator II-XII nml as tested, no motor/sensory deficits, alert, normal mood/affect, oriented x 3 Skin Exam: normal color, warm/dry, cyanosis Progress - Results/Orders Results/Orders: Laboratory Tests 12/25/17 12/25/17 12/25/17 10:21 10:21 11:02 WBC 5.4 RBC 5.20 Hgb 15.7 Hct 48.0 H MCV 92.3 MCH 30.2 MCHC 32.7 L RDW 13.9 Plt Count 167 MPV 9.1 Absolute Neuts (auto) 2.90 Absolute Lymphs (auto) 2.20 Absolute Monos (auto) 0.20 Absolute Eos (auto) 0.10 Absolute Basos (auto) 0.00 Neutrophils % 53.9 Lymphocytes % 39.9 Monocytes % 4.6 Eosinophils % 1.0 Basophils % 0.6 Sodium 141 Potassium 4.2 Chloride 99 L Carbon Dioxide 32 H Anion Gap 14.2 BUN 19 H Creatinine 0.52 L BUN/Creatinine Ratio 36.5 H Random Glucose 84 Serum Osmolality 282.7 Calcium 9.7 Total Bilirubin 0.4 AST 20 ALT 16 Alkaline Phosphatase 68 Serum Total Protein 7.7 Albumin 4.3 Globulin 3.4 Albumin/Globulin Ratio 1.3 Urine Color Yellow Urine Appearance Clear Urine pH 7.5 Ur Specific [place] 1.015 Urine Protein Negative Urine Glucose (UA) Negative Urine Ketones Negative Urine Blood Negative Urine Nitrite Negative Urine Bilirubin Negative Urine Urobilinogen 0.2 Ur Leukocyte Esterase Trace H Urine RBC 0 Urine WBC 1-3 Ur Epithelial Cells 1-3 Urine Bacteria Rare Departure - Departure Clinical Impression: Volume depletion, Dementia, Acute confusion due to known medical condition Time of Disposition: 12:24 Disposition: Discharge to Home or Self Care Condition: Good Departure Forms: ED Discharge - Pt. Copy, Patient Portal Self Enrollment Referrals: Lito Lopez III, MD [Primary Care Provider] - 1-2 Weeks Home Medications: Ambulatory Orders Aspirin [Aspirin EC] 325 mg PO BEDTIME 11/21/13 Clopidogrel Bisulfate [Plavix] 75 mg PO DAILY 11/21/13 DULoxetine HCL [Cymbalta] 20 mg PO ACBK 11/21/13 Dexlansoprazole [Dexilant] 60 mg PO ACBK 11/21/13 Donepezil Hydrochloride [Donepezil HCl] 10 mg PO BEDTIME 11/21/13 Galantamine [Razadyne] 4 mg PO BID 11/21/13 Memantine [Namenda] 10 mg PO BID 11/21/13 Potassium Chloride [K-Tab] 20 meq PO DAILY 11/21/13 Pramipexole Dihydrochloride [Pramipexole Dihydrochlori] 1 mg PO BID 11/21/13 Diazepam 2 mg PO BEDTIME 10/15/14 Diazepam 1 mg PO DAILY 01/28/15 Ascorbic Acid [Vitamin C] 500 mg PO BEDTIME 11/29/15 Bisacodyl Suppository 10Mg [Dulcolax Suppository 10mg] 10 mg MI PRN PRN Calcium Carbonate-Cholecalcife [Calcium 600+D3 600-400 mg-Unit] 1 tab PO BEDTIME 11/29/15 Cyanocobalamin [Vitamin B12] 500 mcg PO BEDTIME 11/29/15 Magnesium Oxide 400 mg PO BID 11/29/15 Polyethylene Glycol 3350 [Miralax] 17 gm PO DAILY 11/29/15 Pravastatin Sodium 40 mg PO DAILY 11/29/15 Sucralfate Tab [Carafate Tab] 1 gm PO TID #90 tab 11/30/15 Clonidine HCl 0.1 mg PO DAILY PRN 12/22/15 Metoprolol Succinate [Toprol Xl] 100 mg PO QAM 12/22/15 Nitroglycerin 0.4 mg Tab [Nitrostat] 1 ea SL PRN PRN 12/22/15 Ondansetron HCl [Zofran] 4 mg PO Q6H PRN 12/22/15 Tylenol #3 1 each PO Q4H PRN 12/22/15 Ondansetron Tab [Zofran Tab] 4 mg PO Q4HR PRN #15 tab 12/23/15 Dicyclomine HCl 10 mg PO PRN 08/23/16 Escitalopram Oxalate [Lexapro] 5 mg PO DAILY 08/23/16 Cetirizine HCl 10 mg PO 06/26/17 Lactulose [Constulose] 10 gm PO 06/26/17 Nystatin Powder [Mycostatin] 15 gm TOP 06/26/17 levoFLOXacin [Levaquin] 500 mg PO DAILY #7 tab 06/26/17
[2017-12-25] MEDS ORDERED: SODIUM CHLORIDE 0.9% 1000ML 1,000 ML IVS ONE (09:53)
--- NOTE | 2017-12-25 10:16 | CT ---
EXAM DESCRIPTION: Head CLINICAL HISTORY: ALTERED MENTAL STATUS COMPARISON: Previous head CT January 20, 2015. TECHNIQUE: Noncontrast head CT was performed with routine protocol. FINDINGS: Normal [place]-white matter differentiation. Ventricles and sulci are prominent consistent with age-related cerebral volume loss. Low density white matter is consistent with chronic microvascular ischemic changes. Low-density of the insular white matter seen bilaterally consistent with old infarctions. Mild basal ganglial calcification. Old small lacunar infarcts of the basal ganglia. No high density hemorrhage, focal edema or shift of the midline. No sulcal effacement. Normal orbital contents. Basilar cisterns appear clear. Intact calvarium with no fracture or lytic lesion. Normal aeration of tympanic cavities and mastoid air cells. No fluid levels in the paranasal sinuses. Skull base appears intact. Symmetrical internal auditory canals. Coronal and sagittal reformatted images confirm the findings. No change compared to the previous study. IMPRESSION: No acute intracranial pathologic process. Age-related cerebral volume loss with chronic microvascular ischemic changes. This exam was performed according to our departmental dose-optimization program, which includes automated exposure control, adjustment of the mA and/or kV according to patient size and/or use of iterative reconstruction technique. Total DLP equals 752.48 mGycm. Electronically signed by: Meliton Lorenz MD 12/25/2017 10:15 AM CDT
--- NOTE | 2017-12-25 10:22 | RAD ---
EXAM DESCRIPTION: Chest,1 View CLINICAL HISTORY: 87 years Female, R/OPNEUMONIA COMPARISON: Previous study June 26, 2017, CTA chest December 22, 2015 TECHNIQUE: AP portable chest. FINDINGS: Heart size is large with centrally increased pulmonary vascularity. No consolidating infiltrate. Discoid atelectasis in lingula and left lower lobe. No pulmonary mass or worrisome nodule. No pneumothorax or pleural effusion. Bones are unremarkable. Compared to previous study, the vessels appear more congested. Left lower lung patchy infiltrate seen previously appears improved or resolved. IMPRESSION: Large heart with moderate vascular congestion. Electronically signed by: Meliton Lorenz MD 12/25/2017 10:20 AM CDT
[2017-12-25 13:07] VITALS: BP 149/80; TEMP 98.2; O2SAT 94
== END 2017-12-25 12:55 ==
LOC: ER 09:23
DX: E86.9 Volume depletion, unspecified (principal); R41.0 Disorientation, unspecified; F03.90 Unspecified dementia, unspecified severity, without behavioral disturbance, psychotic disturbance, mood disturbance, and anxiety; R41.82 Altered mental status, unspecified; I10 Essential (primary) hypertension; I51.9 Heart disease, unspecified; F32.9 Major depressive disorder, single episode, unspecified; K21.9 Gastro-esophageal reflux disease without esophagitis; Z86.73 Personal history of transient ischemic attack (TIA), and cerebral infarction without residual deficits; Z79.899 Other long term (current) drug therapy; Z79.82 Long term (current) use of aspirin; Z88.0 Allergy status to penicillin
CPT/HCPCS: 36415; 70450; 71045; 80053; 81001; 85025; 85610; 85730; 93005; J7030

== ENCOUNTER → 2018-06-21 | Outpatient (CLI) | payer MEDICARE, OTHER | LOC: GMAL 14:51 | PROVIDERS: ATTEND Family Medicine | DX: E83.42 Hypomagnesemia (principal) ==

== ENCOUNTER 2018-09-08 19:48 | Emergency (ER) | payer MEDICARE, OTHER ==
[2018-09-08] MEDS ORDERED: ALUM & MAG HYDROX-SIMETHICONE 30 ML, LIDOCAINE VISCOUS 2% 15 ML PO ONE ×2 (20:12)
[2018-09-08] MEDS ORDERED: LIDOCAINE HCL 2% (MOUTH-THROAT) 15 ML UD ONE (20:12)
[2018-09-08] MEDS ORDERED: ALUM & MAG HYDROX-SIMETHICONE 30 ML UD ONE (20:13)
--- NOTE | 2018-09-08 20:15 | ED.PDOC ---
History of Present Illness - General Chief Complaint: Chest Pain/MS Stated Complaint: Chest pain, left arm and leg pain Time Seen by Provider: 09/08/18 20:03 Source: patient, family, [facility] Exam Limitations: other - dementia - History of Present Illness Initial Comments: c/o indigestion approx 2 hrs ago followed by chest pain. Radiates to left leg. Also c/o left sided paresthesias of unclear duration. Timing/Duration: 1-3 hours Severity/Quality: mild, dull, ingestion Location: substernal Chest Pain Radiation: arms, back, other - left leg Activities at Onset: rest Prior Chest Pain/Cardiac Workup: no prior chest pain Improving Factors: nothing Worsening Factors: nothing Nitro Today/Relief: 0.4 mg x 3, provided by EMS, no relief Aspirin Treatment Today: provided by EMS Associated Symptoms: heartburn Allergies/Adverse Reactions: Allergies Penicillins Allergy (Verified 06/26/17 03:10) Home Medications: Ambulatory Orders Aspirin [Aspirin EC] 325 mg PO BEDTIME 11/21/13 Clopidogrel Bisulfate [Plavix] 75 mg PO DAILY 11/21/13 DULoxetine HCL [Cymbalta] 20 mg PO ACBK 11/21/13 Dexlansoprazole [Dexilant] 60 mg PO ACBK 11/21/13 Donepezil Hydrochloride [Donepezil HCl] 10 mg PO BEDTIME 11/21/13 Galantamine [Razadyne] 4 mg PO BID 11/21/13 Memantine [Namenda] 10 mg PO BID 11/21/13 Potassium Chloride [K-Tab] 20 meq PO DAILY 11/21/13 Pramipexole Dihydrochloride [Pramipexole Dihydrochlori] 1 mg PO BID 11/21/13 Diazepam 2 mg PO BEDTIME 10/15/14 Diazepam 1 mg PO DAILY 01/28/15 Ascorbic Acid [Vitamin C] 500 mg PO BEDTIME 11/29/15 Bisacodyl Suppository 10Mg [Dulcolax Suppository 10mg] 10 mg OK PRN PRN 11/29/15 Calcium Carbonate-Cholecalcife [Calcium 600+D3 600-400 mg-Unit] 1 tab PO BEDTIME 11/29/15 Cyanocobalamin [Vitamin B12] 500 mcg PO BEDTIME 11/29/15 Magnesium Oxide 400 mg PO BID 11/29/15 Polyethylene Glycol 3350 [Miralax] 17 gm PO DAILY 11/29/15 Pravastatin Sodium 40 mg PO DAILY 11/29/15 Sucralfate Tab [Carafate Tab] 1 gm PO TID #90 tab 11/30/15 Clonidine HCl 0.1 mg PO DAILY PRN 12/22/15 Metoprolol Succinate [Toprol Xl] 100 mg PO QAM 12/22/15 Nitroglycerin 0.4 mg Tab [Nitrostat] 1 ea SL PRN PRN 12/22/15 Ondansetron HCl [Zofran] 4 mg PO Q6H PRN 12/22/15 Tylenol #3 1 each PO Q4H PRN 12/22/15 Ondansetron Tab [Zofran Tab] 4 mg PO Q4HR PRN #15 tab 12/23/15 Dicyclomine HCl 10 mg PO PRN 08/23/16 Escitalopram Oxalate [Lexapro] 5 mg PO DAILY 08/23/16 Cetirizine HCl 10 mg PO 06/26/17 Lactulose [Constulose] 10 gm PO 06/26/17 Nystatin Powder [Mycostatin] 15 gm TOP 06/26/17 levoFLOXacin [Levaquin] 500 mg PO DAILY #7 tab 06/26/17 Review of Systems - Review of Systems Constitutional: States: no symptoms reported EENTM: States: no symptoms reported Respiratory: States: no symptoms reported Cardiology: States: see HPI Gastrointestinal/Abdominal: States: see HPI Genitourinary: States: no symptoms reported Musculoskeletal: States: see HPI Skin: States: no symptoms reported Neurological: States: see HPI Hematologic/Lymphatic: States: no symptoms reported Past Medical History (General) - Patient Medical History Hx Seizures: No Hx Stroke: Yes - TIA, cerebral infarction Hx Dementia: Yes Hx Asthma: No Hx of COPD: No Hx Cardiac Disorders: Yes Hx Congestive Heart Failure: No Hx Pacemaker: No Hx Hypertension: Yes Hx Thyroid Disease: No Hx Diabetes: No Hx Gastroesophageal Reflux: Yes Hx Renal Disease: No Hx Cancer: No Hx of HIV: No Hx Hepatitis C: No Hx MRSA: No - Vaccination History Hx Influenza Vaccination: Yes - 2013 Hx Pneumococcal Vaccination: Yes - 2012 - Social History Hx Tobacco Use: No Hx Chewing Tobacco Use: No Hx Alcohol Use: No Hx Substance Use: No Hx Substance Use Treatment: No Hx Depression: Yes Hx Physical Abuse: No Hx Emotional Abuse: No Hx Suspected Abuse: No - Female History Patient : No Family Medical History - Family History Mother Family History: Unknown Name: Susan Torre Living Status: Age at (years of age): 97 Cause of : heart attack Hx Family Asthma: Yes Hx Family Congestive Heart Failure: Yes Hx Family Hypertension: Yes Hx Family Stroke: No Hx Cardiac Disease: Yes Hx Family Diabetes: No Hx Family Cancer: Yes Hx Family;Other: of an infection Father Family History: Unknown Name: Tommie Living Status: Age at (years of age): 86 Cause of : heart attach Hx Family Asthma: No Hx Family Congestive Heart Failure: Yes Hx Family Hypertension: Yes Hx Family Stroke: Yes Hx Cardiac Disease: Yes Hx Family Diabetes: No Hx Family Cancer: No Hx Family;Other: of an infection Physical Exam - Physical Exam General Appearance: Alert, Anxious, No apparent distress Eyes, Ears, Nose, Throat Exam: PERRL/EOMI, normal ENT inspection Neck: supple, normal inspection Respiratory: normal breath sounds, no respiratory distress, no accessory muscle use Cardiovascular/Chest: regular rate, rhythm, no edema Gastrointestinal/Abdominal: non tender, soft, no organomegaly Extremity: normal range of motion, non-tender, normal inspection, no pedal edema Neurologic: customizer II-XII nml as tested, alert - A/O x 2; no focal weakness; altered sensation to left leg Skin Exam: normal color, warm/dry Progress - Progress Progress: 09/08/18 21:25 Unchanged. Her hx changes each time she is questioned. I have discussed the case with the family & they decline admission & [facility] She is taking ASA & Plavix. Teaching & precautions given re: possible ACS and/or TIA. They understand. 09/08/18 21:31 - Results/Orders Results/Orders: WBC 5 d-dimer 0.49 Tr <0.02 - EKG/XRAY/CT EKG: Sinus - NSR @ 68; nml axis, QRS, ST segments. Flat T waves. First degree HB. XRAY: chest - atelectasis Departure - Departure Clinical Impression: Paresthesia Dementia Qualifiers: Dementia type: Alzheimer's disease Alzheimer's disease onset: unspecified onset Dementia behavioral disturbance: without behavioral disturbance Qualified Code(s): G30.9 - Alzheimer's disease, unspecified; F02.80 - Dementia in other diseases classified elsewhere without behavioral disturbance Chest pain Qualifiers: Chest pain type: unspecified Qualified Code(s): R07.9 - Chest pain, unspecified Time of Disposition: 21:30 Disposition: Discharge to Home or Self Care Condition: Fair Departure Forms: ED Discharge - Pt. Copy, Patient Portal Self Enrollment Instructions: DI for Chest Pain, Transient Ischemic Attack (DC) Referrals: Lito Lopez III, MD [Primary Care Provider] - 09/10/18 Home Medications: Ambulatory Orders Aspirin [Aspirin EC] 325 mg PO BEDTIME 11/21/13 Clopidogrel Bisulfate [Plavix] 75 mg PO DAILY 11/21/13 DULoxetine HCL [Cymbalta] 20 mg PO ACBK 11/21/13 Dexlansoprazole [Dexilant] 60 mg PO ACBK 11/21/13 Donepezil Hydrochloride [Donepezil HCl] 10 mg PO BEDTIME 11/21/13 Galantamine [Razadyne] 4 mg PO BID 11/21/13 Memantine [Namenda] 10 mg PO BID 11/21/13 Potassium Chloride [K-Tab] 20 meq PO DAILY 11/21/13 Pramipexole Dihydrochloride [Pramipexole Dihydrochlori] 1 mg PO BID 11/21/13 Diazepam 2 mg PO BEDTIME 10/15/14 Diazepam 1 mg PO DAILY 01/28/15 Ascorbic Acid [Vitamin C] 500 mg PO BEDTIME 11/29/15 Bisacodyl Suppository 10Mg [Dulcolax Suppository 10mg] 10 mg OK PRN PRN 11/29/15 Calcium Carbonate-Cholecalcife [Calcium 600+D3 600-400 mg-Unit] 1 tab PO BEDTIME 11/29/15 Cyanocobalamin [Vitamin B12] 500 mcg PO BEDTIME 11/29/15 Magnesium Oxide 400 mg PO BID 11/29/15 Polyethylene Glycol 3350 [Miralax] 17 gm PO DAILY 11/29/15 Pravastatin Sodium 40 mg PO DAILY 11/29/15 Sucralfate Tab [Carafate Tab] 1 gm PO TID #90 tab 11/30/15 Clonidine HCl 0.1 mg PO DAILY PRN 12/22/15 Metoprolol Succinate [Toprol Xl] 100 mg PO QAM 12/22/15 Nitroglycerin 0.4 mg Tab [Nitrostat] 1 ea SL PRN PRN 12/22/15 Ondansetron HCl [Zofran] 4 mg PO Q6H PRN 12/22/15 Tylenol #3 1 each PO Q4H PRN 12/22/15 Ondansetron Tab [Zofran Tab] 4 mg PO Q4HR PRN #15 tab 12/23/15 Dicyclomine HCl 10 mg PO PRN 08/23/16 Escitalopram Oxalate [Lexapro] 5 mg PO DAILY 08/23/16 Cetirizine HCl 10 mg PO 06/26/17 Lactulose [Constulose] 10 gm PO 06/26/17 Nystatin Powder [Mycostatin] 15 gm TOP 06/26/17 levoFLOXacin [Levaquin] 500 mg PO DAILY #7 tab 06/26/17
--- NOTE | 2018-09-08 20:38 | RAD ---
EXAM DESCRIPTION: Chest,1 View CLINICAL HISTORY: 88 years Female, chest pain COMPARISON: December 25, 2017. FINDINGS: Mild prominence of the cardiomediastinal silhouette, unchanged Minimal opacity in the left lung base, new from prior study. No pneumothorax or pleural effusion. Degenerative changes. IMPRESSION: New minimal opacity in the left lung base, atelectasis versus developing infection. Electronically signed by: Rodríguez Bergman MD 09/08/2018 8:35 PM CDT
--- NOTE | 2018-09-08 20:47 | CT ---
PROCEDURE: CT Head CLINICAL HISTORY: 88 years Female paresthesias TECHNIQUE: Contiguous axial CT images obtained through the brain without IV contrast. This CT exam was performed according to our departmental dose-optimization program, which includes one or more of the following dose reduction techniques: automated exposure control, adjustment of the mA and/or kV according to patient size, and/or use of iterative reconstruction technique. COMPARISON: Comparison is made to the prior examination dated 12/25/2017. FINDINGS: There is no intracranial hemorrhage, extraaxial collection, or evidence of acute transcortical infarction. Patchy foci of low attenuation within the periventricular and subcortical white matter and punctate basal ganglia calcifications are most compatible with chronic microvascular disease. There is mild diffuse volume loss without mass effect or midline shift. Vascular calcifications are noted. No lesion of the skull base or calvarium is identified. Mild mucosal thickening in the right maxillary sinus. The paranasal sinuses and mastoid air cells are otherwise clear. IMPRESSION: No acute intracranial abnormality. Stable patchy chronic microvascular changes and volume loss. Mild mucosal thickening in the right maxillary sinus. Electronically signed by: Day Lovell MD 09/08/2018 8:44 PM CDT
[2018-09-08 20:53] VITALS: TEMP 98.9; O2SAT 94
[2018-09-08 20:56] VITALS: BP 113/67
== END 2018-09-08 21:42 | disposition home or self-care (01) ==
LOC: ER 19:48
DX: R07.9 Chest pain, unspecified (principal); G30.9 Alzheimer's disease, unspecified; F02.80 Dementia in other diseases classified elsewhere, unspecified severity, without behavioral disturbance, psychotic disturbance, mood disturbance, and anxiety; R20.2 Paresthesia of skin; I44.0 Atrioventricular block, first degree; F32.9 Major depressive disorder, single episode, unspecified; I51.9 Heart disease, unspecified; I10 Essential (primary) hypertension; K21.9 Gastro-esophageal reflux disease without esophagitis; Z79.82 Long term (current) use of aspirin; Z79.02 Long term (current) use of antithrombotics/antiplatelets; Z86.73 Personal history of transient ischemic attack (TIA), and cerebral infarction without residual deficits; Z79.899 Other long term (current) drug therapy; Z88.0 Allergy status to penicillin

== ENCOUNTER → 2020-03-26 | Outpatient (CLI) | payer MEDICARE, OTHER, MEDICAID | LOC: GT 20:21 | PROVIDERS: ATTEND Family Medicine | DX: R71.8 Other abnormality of red blood cells (principal); B34.2 Coronavirus infection, unspecified; R09.02 Hypoxemia ==

== ENCOUNTER → 2020-04-06 | Outpatient (CLI) | payer MEDICARE, OTHER, MEDICAID | LOC: GT 21:01 | PROVIDERS: ATTEND Family Medicine | DX: E78.5 Hyperlipidemia, unspecified (principal) ==